=== PATIENT | male | born 1960 | race Caucasian/White ===

== ENCOUNTER 2018-06-07 23:28 | Observation (INO) | payer OTHER, MEDICAID ==
[~2018-06-07] VITALS: Ht 180.3 cm; Wt 104.3 kg
[2018-06-07 23:34] VITALS: Ht 180.3 cm; Wt 104.3 kg
[2018-06-08 00:14] LABS: BASOPHIL % 0.5 % (0-2); PLATELET COUNT 193 x10^3mcL (130-400); RED CELL DISTRIBUTION WIDTH 13.8 % (11.5-14.5)
[2018-06-08 00:23] LABS: CALCIUM 9.1 mg/dL (8.5-10.1); CARBON DIOXIDE 23.4 mmol/L (21-32); CREATININE SERUM 1.4 mg/dL (0.7-1.3); POTASSIUM SERUM 3.8 mmol/L (3.5-5.1)
[2018-06-08 00:28] LABS: ALBUMIN 3.4 g/dL (3.4-5.0); BILIRUBIN TOTAL 0.4 mg/dL (0.20-1.00); TOTAL PROTEIN, SERUM 7.3 g/dL (6.4-8.2)
[2018-06-08] MEDS ORDERED: GLUCOTROL5 MG PO (05:13)
[2018-06-08] MEDS ORDERED: LIPITOR40 MG PO (05:13)
[2018-06-08] MEDS ORDERED: METFORMIN500 M1 PO (05:13)
[2018-06-08] MEDS ORDERED: LANTUS SOLOS100 U/M1 SQ (05:14)
[2018-06-08] MEDS ORDERED: HYDROCHLOROTHIA25 MG PO (05:14)
[2018-06-08] MEDS ORDERED: ATIVAN0.5 M1 PO (05:16)
[2018-06-08 07:54] VITALS: BP 147/98
[2018-06-08 12:37] VITALS: BP 132/93
[2018-06-08 16:08] VITALS: BP 150/98
[2018-06-08 16:15] LABS: AMPHETAMINE QUAL UR NONE DETECTED (See below)
[2018-06-08 17:05] VITALS: BP 150/98
== END 2018-06-08 17:46 | disposition home or self-care (01) | DRG 392 ==
LOC: ED 23:28 → DU 06-08 05:00 → EDBEDREQ 06-08 05:01 → DU 06-08 07:51
PROVIDERS: Emergency Medicine; ADMIT Internal Medicine Pulmonary Disease
DX: K59.00 Constipation, unspecified (principal); R07.89 Other chest pain; E86.0 Dehydration; G47.33 Obstructive sleep apnea (adult) (pediatric); I11.9 Hypertensive heart disease without heart failure; I25.10 Atherosclerotic heart disease of native coronary artery without angina pectoris; E11.9 Type 2 diabetes mellitus without complications; E66.01 Morbid (severe) obesity due to excess calories; Z79.4 Long term (current) use of insulin
CPT/HCPCS: 82962; 85378; G0378; J1644; J2060; J2405; J7030; Q0092

== ENCOUNTER 2019-11-25 19:41 | Emergency (ER) | payer MEDICAID ==
[~2019-11-25] VITALS: Ht 172.7 cm; Wt 101.6 kg
[~2019-11-25 19:41] MED LIST: ATIVAN0.5 M1 PO; GLUCOTROL5 MG PO; HYDROCHLOROTHIA25 MG PO; LANTUS SOLOS100 U/M1 SQ; LIPITOR40 MG PO; METFORMIN500 M1 PO
[2019-11-25 20:14] VITALS: Ht 172.7 cm; Wt 101.6 kg
[2019-11-25 21:05] LABS: BASOPHIL % 0.6 % (0-2); PLATELET COUNT 169 x10^3mcL (130-400)
[2019-11-25 21:59] LABS: CALCIUM 8.6 mg/dL (8.5-10.1); CARBON DIOXIDE 19.6 mmol/L (21-32); CREATININE SERUM 1.6 mg/dL (0.7-1.3); POTASSIUM SERUM 3.8 mmol/L (3.5-5.1)
[2019-11-25 22:06] LABS: ALBUMIN 3.7 g/dL (3.4-5.0); BILIRUBIN TOTAL 0.67 mg/dL (0.20-1.00); MAGNESIUM 1.9 mg/dL (1.8-2.4); TOTAL PROTEIN, SERUM 7.1 g/dL (6.4-8.2)
[2019-11-26 00:02] VITALS: BP 110/74
== END 2019-11-26 00:02 | disposition home or self-care (01) ==
LOC: ED 19:41
PROVIDERS: Emergency Medicine
DX: E86.0 Dehydration (principal); E11.9 Type 2 diabetes mellitus without complications; Z88.8 Allergy status to other drugs, medicaments and biological substances; Z88.6 Allergy status to analgesic agent
CPT/HCPCS: 82962; 83880; J7030; Q0092